=== PATIENT | male | born 1965 | race Caucasian/White ===

== ENCOUNTER → 2018-01-01 | Outpatient (CLI) | payer BC ==
--- NOTE | 2018-01-01 13:58 | BD ---
EXAMINATION TYPE: Axial Bone Density DATE OF EXAM: 01/01/2018 COMPARISON: DEXA bone scan September 21, 2015 CLINICAL HISTORY: Known osteoporosis. Height: 5 FT 10 IN Weight: 199 FRAX RISK QUESTIONS: Glucocorticoids (More than 3mos): YES (Ex: prednisone, prednisolone, methylprednisolone, dexamethasone, and hydrocortisone). RISK FACTORS HISTORY OF: Family History of Osteoporosis: YES Active: YES MEDICATIONS: Prednisone or other steroids: YES How Long: TAKES PREDNISONE FOR ONE MONTH AT A TIME FOR AT LEAST 3 TIMES A YEAR Additional Medications: ADVAIR DISC, SINGULAIR, OMEPRAZOLE, NASAL SPRAY ALLERGIES, KOZAR, VIT D3 CALC IUM , VALTREX NEEDED Additional History: ASTHMATIC SINCE A CHILD EXAM MEASUREMENTS: Bone mineral densitometry was performed using the [employer] System. Bone mineral density as measured about the Lumbar spine is: ----- L1-L4(G/cm2): 0.826 T Score Values are as follows: ----- L2: -3.1 ----- L3: -3.5 ----- L4: -3.5 ----- L1-L4: -3.0 Bone mineral density has: INCREASED 1.5 SINCE 2015 Bone mineral density about the R hip (g/cm2): 0.701 Bone mineral density about the L hip (g/cm2): 0.741 T Score values are as follows: -----R Neck: -2.4 -----L Neck: -2.1 -----R Total: -1.2 -----L Total: -1.0 Bone mineral density has: INCREASED 0.6 SINCE 2015 IMPRESSION: Osteoporosis (T Score less than -2.5) persists overall in the low back though bone density is not sig nificantly changed from prior. There remains increased fracture risk and therapy is usually indicated based on age. Re-Screen 1-2 years. NOTE: T-SCORE=SD OF THE YOUNG ADULT MEAN.
== END | disposition home or self-care (01) ==
LOC: RADBDWWP 08:41
PROVIDERS: ATTEND Internal Medicine
DX: M81.0 Age-related osteoporosis without current pathological fracture (principal)
CPT/HCPCS: 77080

== ENCOUNTER → 2018-03-07 | Outpatient (CLI) | payer BC ==
[2018-03-07 16:31] LABS: ALT 31 U/L (21-72); AST 25 U/L (17-59); Albumin 4.6 g/dL (3.5-5.0); Alkaline Phosphatase 53 U/L (38-126); Anion Gap 8 mmol/L; Blood Urea Nitrogen 12 mg/dL (9-20); Calcium 10.1 mg/dL (8.4-10.2); Carbon Dioxide 28 mmol/L (22-30); Chloride 104 mmol/L (98-107); Glucose 89 mg/dL (74-99); Potassium 4.4 mmol/L (3.5-5.1); Sodium 140 mmol/L (137-145); Total Bilirubin 0.4 mg/dL (0.2-1.3); Total Protein 7.8 g/dL (6.3-8.2)
--- NOTE | 2018-03-07 18:57 | US ---
EXAMINATION TYPE: US thyroid st tissue head/neck DATE OF EXAM: 03/07/2018 COMPARISON: NONE CLINICAL HISTORY: Z80.8 Family hx thyroid ca. family hx of thyroid cancer. No thyroid medications. GLAND SIZE: Right Lobe: 4.6 x 1.6 x 2.1 cm Overall Parenchyma: homogenous Left Lobe: 4.4 x 1.6 x 1.6 cm Overall Parenchyma: homogeneous Isthmus Thickness: 0.4 cm NODULES RIGHT: # of nodules measured on right: 1 1. 1.5 X 1.1 x 0.8 cm mixed nodule at the upper pole with well-defined margins. This nodule is wid er than tall and shows no intranodular vascularity. Prior size: No prior LEFT: # of nodules measured on left: 0 ISTHMUS: # of nodules measured in the isthmus: 0 Bilateral neck scanned, no evidence of lymphadenopathy. IMPRESSION: There is a oval-shaped complex cyst in the upper pole right thyroid lobe. This has high likelihood of being benign. Since this is solitary this could be followed conservatively with repeat ultrasound in 6-9 months.
[2018-03-08 02:15] LABS: Parathyroid Hormone Intact 26.2 pg/mL (14.0-72.0)
[2018-03-08 02:26] LABS: Vitamin D 25 Hydroxy 36.5 ng/mL (30.0-100.0)
== END ==
LOC: RADUSMAIN 15:47
PROVIDERS: ATTEND Internal Medicine Endocrinology, Diabetes & Metabolism
DX: E04.1 Nontoxic single thyroid nodule (principal); M81.0 Age-related osteoporosis without current pathological fracture; Z80.8 Family history of malignant neoplasm of other organs or systems
CPT/HCPCS: 36415; 76536; 80053; 82306; 82523; 83970; 84443

== ENCOUNTER → 2019-06-07 | Outpatient (CLI) | payer BC ==
--- NOTE | 2019-06-07 12:54 | US ---
EXAMINATION TYPE: US thyroid st tissue head/neck DATE OF EXAM: 06/07/2019 COMPARISON: US 03/07/18 CLINICAL HISTORY: E04.1 Thyroid nodule. GLAND SIZE: Right Lobe: 5.1 x 2.2 x 1.5 cm Overall Parenchyma: homogenous Left Lobe: 4.9 x 1.5 x 1.4 cm Overall Parenchyma: homogeneous Isthmus Thickness: 0.4 cm NODULES RIGHT: # of nodules measured on right: 1 1. 1.3 X 1.0 x 0.7 cm hypoechoic mixed nodule at the upper pole with well-defined margins; . This nodule is wider than tall and shows intranodular vascularity. Prior size: 1.5 x 1.1 x 0.8 cm LEFT: # of nodules measured on left: 0 ISTHMUS: # of nodules measured in the isthmus: 0 Bilateral neck scanned, no evidence of lymphadenopathy. Overall stable findings there is 1.3 cm hypoechoic oval nodule upper to midpole level right thyroid r edemonstrated. IMPRESSION: As above. Stable normal-sized thyroid without new greater than 1 cm nodule.
== END | disposition home or self-care (01) ==
LOC: RADUSWWP 12:21
PROVIDERS: ATTEND Internal Medicine Endocrinology, Diabetes & Metabolism
DX: E04.1 Nontoxic single thyroid nodule (principal)
CPT/HCPCS: 76536

== ENCOUNTER → 2020-04-16 | Outpatient (CLI) | payer BC ==
--- NOTE | 2020-04-16 16:53 | BD ---
EXAMINATION TYPE: Axial Bone Density DATE OF EXAM: 04/16/2020 COMPARISON: 01/01/2018 CLINICAL HISTORY: 54-year-old male M81.0, age-related osteoporosis. Height: 69.5 IN Weight: 198 LBS RISK FACTORS HISTORY OF: History of Wrist Fracture: LT WRIST AGE 16 Family History of Osteoporosis: YES MOTHER AND GRANDMOTHER Active: YES MEDICATIONS: Osteoporosis Medications: YES Which medication: TYMLOS INJECTIONS FOR ALMOST 2 YEARS Additional Medications: CALCIUM, VIT D, TYMLO S INJECTIONS,WIXELA INHALER, FISH OIL, NASAL SPRAY, ZYRTEC, LOSARTAN, SINGULAIR, PRILOSEC, RED YEAST RICE, IRON, EXAM MEASUREMENTS: Bone mineral densitometry was performed using the [employer] System. Bone mineral density as measured about the Lumbar spine is: ----- L1-L4(G/cm2): 1.051 T Score Values are as follows: ----- L2: -0.7 ----- L3: -1.7 ----- L4: -1.7 ----- L1-L4: -1.1 Bone mineral density has: Increased 29.8% since study of: 01/01/2018 Bone mineral density about the R hip (g/cm2): 0.751 Bone mineral density about the L hip (g/cm2): 0.797 T Score values are as follows: -----R Neck: -2.1 -----L Neck: -1.7 -----R Total: -0.8 -----L Total: -0.7 Bone mineral density has: Increased 5.4% since study of: 01/01/2018 IMPRESSION: Osteopenia (T Score between -2.5 and -1). There is slightly increased risk of fracture and the patient may be considered for treatment. Re-Screen 2-5 years. NOTE: T-SCORE=SD OF THE YOUNG ADULT MEAN.
== END | disposition home or self-care (01) ==
LOC: RADBDWWP 13:16
PROVIDERS: ATTEND Internal Medicine Endocrinology, Diabetes & Metabolism
DX: M85.80 Other specified disorders of bone density and structure, unspecified site (principal); M81.0 Age-related osteoporosis without current pathological fracture
CPT/HCPCS: 77080

== ENCOUNTER → 2020-07-16 | Outpatient (CLI) | payer BC ==
[2020-07-17 10:02] LABS: African American GFR (CKD) 115.7 (60.0-200.0); Albumin 4.7 g/dL (3.80-4.90); Albumin/Globulin Ratio 2.04 (1.60-3.17); Anion Gap 11.8 mmol/L (4.00-12.00); Calcium 9.6 mg/dL (8.7-10.3); Carbon Dioxide 23.2 mmol/L (21.6-31.8); Globulin 2.3 g/dL (1.6-3.3); Non-African American GFR(CKD) 99.9 (60.0-200.0); Potassium 4.7 mmol/L (3.5-5.5); Total Bilirubin 0.7 mg/dL (0.2-1.2)
== END | disposition home or self-care (01) ==
LOC: LABWHC1 13:22
PROVIDERS: ATTEND Internal Medicine Endocrinology, Diabetes & Metabolism
DX: M81.0 Age-related osteoporosis without current pathological fracture (principal)
CPT/HCPCS: 36415; 80053; 82306

== ENCOUNTER → 2021-02-03 | Outpatient (CLI) | payer BC ==
[2021-02-04 03:27] LABS: African American GFR (CKD) 109.5 (60.0-200.0); Albumin 4.8 g/dL (3.80-4.90); Albumin/Globulin Ratio 2.09 (1.60-3.17); Anion Gap 15.6 mmol/L (4.00-12.00); BUN/Creat Ratio 11.11 Ratio (12.00-20.00); Calcium 9.6 mg/dL (8.7-10.3); Carbon Dioxide 19.4 mmol/L (21.6-31.8); Globulin 2.3 g/dL (1.6-3.3); Non-African American GFR(CKD) 94.5 (60.0-200.0); Potassium 4.4 mmol/L (3.5-5.5); Total Bilirubin 0.5 mg/dL (0.3-1.2); Total Protein 7.1 g/dL (6.2-8.2)
== END | disposition home or self-care (01) ==
LOC: LABWHC1 13:50
PROVIDERS: ATTEND Internal Medicine Endocrinology, Diabetes & Metabolism
DX: M18.0 Bilateral primary osteoarthritis of first carpometacarpal joints (principal)
CPT/HCPCS: 36415; 80053; 82306; 82523; 83970; 84443

== ENCOUNTER → 2021-02-03 | Outpatient (CLI) | payer BC ==
--- NOTE | 2021-02-04 17:47 | US ---
EXAMINATION TYPE: US thyroid st tissue head/neck DATE OF EXAM: 02/03/2021 COMPARISON: 06/07/2019 CLINICAL HISTORY: 55-year-old male E04.1 SINGLE THYROID NODULE. Nontoxic single thyroid nodule. Hx bi opsy. GLAND SIZE: Right Lobe: 5.4 x 1.7 x 1.8 cm Overall Parenchyma: homogenous Left Lobe: 4.8 x 1.5 x 2.2 cm Overall Parenchyma: homogeneous Isthmus Thickness: 0.28 cm NODULES RIGHT: # of nodules measured on right: 1 1. 1.0 X 1.1 x 0.8 cm, mid-lower, solid or almost completely solid, hypoechoic TR 4 nodule, which i s wider than tall, with smooth margins, with echogenic foci. Prior size: 1.3 x 1.0 x 0.7 cm LEFT: # of nodules measured on left: 0 ISTHMUS: # of nodules measured in the isthmus: 0 Bilateral neck scanned, no evidence of lymphadenopathy. IMPRESSION: Borderline thyromegaly with relatively unchanged solid 1.1 cm TR4 nodule in the right lobe (versus 1. 3 cm, previously).
== END | disposition home or self-care (01) ==
LOC: RADUSWWP 13:26
PROVIDERS: ATTEND Internal Medicine Endocrinology, Diabetes & Metabolism
DX: E04.1 Nontoxic single thyroid nodule (principal)
CPT/HCPCS: 76536

== ENCOUNTER → 2021-07-12 | Outpatient (CLI) | payer BC ==
[2021-07-12 16:17] LABS: Total Eosinophil Count 170 #EOS/uL (150-300)
[2021-07-12 23:27] LABS: Basophils # (A) 0.01 X 10*3/uL (0.00-0.10); Basophils % (A) 0.1 %; Eosinophils # (A) 0.16 X 10*3/uL (0.04-0.35); Eosinophils % (A) 2.1 %; Immature Grans, Automated 0.3 %; Lymphocytes # (A) 2.35 X 10*3/uL (0.90-5.00); Lymphocytes % (A) 30.6 %; MCH 30.2 pg (27.0-32.0); MCHC 33.3 g/dL (32.0-37.0); MCV 90.5 fL (80.0-97.0); Mean Platelet Volume 9.4 fL (9.5-12.2); Monocytes # (A) 0.47 X 10*3/uL (0.20-1.00); Monocytes % (A) 6.1 %; NRBC Per 100 WBC 0 /100 WBCS (0.0-0.0); Neutrophils # (A) 4.67 X 10*3/uL (1.80-7.70); Neutrophils % (A) 60.8 %; Platelet Count 344 X 10*3/uL (140-440); RBC 4.31 X 10*6/uL (4.40-5.60); RDW 12.6 % (11.5-14.5); WBC 7.68 X 10*3/uL (4.50-10.00)
== END | disposition home or self-care (01) ==
LOC: LABWHC1 14:04
PROVIDERS: ATTEND Internal Medicine
DX: J45.909 Unspecified asthma, uncomplicated (principal)
CPT/HCPCS: 36415; 85008; 85025

== ENCOUNTER → 2022-10-25 | Outpatient (CLI) | payer BC ==
--- NOTE | 2022-10-25 15:36 | US ---
EXAMINATION TYPE: US thyroid st tissue head/neck DATE OF EXAM: 10/25/2022 COMPARISON: US dated 02/03/2021 CLINICAL INDICATION: Male, 57 years old with history of E04.1 SINGLE THYROID NODULE; GLAND SIZE: Right Lobe: 6.1 x 2.1 x 1.7 cm Overall Parenchyma: homogenous Left Lobe: 4.9 x 1.5 x 1.5 cm Overall Parenchyma: homogeneous Isthmus Thickness: 0.2 cm NODULES RIGHT: # of nodules measured on right: 1 1. 1.0 X 0.7 x 1.1 cm, upper mid, solid or almost completely solid, hypoechoic nodule, which is wid er than tall, with smooth margins, without echogenic foci. TR 4. Prior size: 1.0 x 0.8 x 1.1 cm LEFT: # of nodules measured on left: 0 ISTHMUS: # of nodules measured in the isthmus: 0 Bilateral neck scanned, no evidence of lymphadenopathy. Stable nodule. IMPRESSION: Stable right thyroid TR 4 nodule. No new thyroid nodules.
== END | disposition home or self-care (01) ==
LOC: RADUSWWP 12:34
PROVIDERS: ATTEND Internal Medicine Endocrinology, Diabetes & Metabolism
DX: E04.1 Nontoxic single thyroid nodule (principal)
CPT/HCPCS: 76536

== ENCOUNTER → 2022-10-25 | Outpatient (CLI) | payer BC ==
[2022-10-25 20:51] LABS: ALT 27 U/L (10-49); AST 24 U/L (14-35); Albumin 4.6 d/dL (3.8-4.9); Albumin/Globulin Ratio 1.84 Ratio (1.60-3.17); Alkaline Phosphatase 54 U/L (41-126); BUN/Creat Ratio 15.89 Ratio (12.00-20.00); Blood Urea Nitrogen 14.3 mg/dL (9.0-27.0); Carbon Dioxide 21.6 mmol/L (21.6-31.8); Chloride 102 mmol/L (96-109); Globulin 2.5 d/dL (1.6-3.3); Glucose 86 mg/dL (70-110); Potassium 3.9 mmol/L (3.5-5.5); Sodium 137 mmol/L (135-145); Total Bilirubin 0.6 mg/dL (0.3-1.2); Total Protein 7.1 d/dL (6.2-8.2)
== END | disposition home or self-care (01) ==
LOC: LABWHC1 12:38
PROVIDERS: ATTEND Internal Medicine Endocrinology, Diabetes & Metabolism
DX: M81.0 Age-related osteoporosis without current pathological fracture (principal)
CPT/HCPCS: 36415; 80053; 82306; 82523; 83970; 84153; 84443

== ENCOUNTER → 2023-10-24 | Outpatient (CLI) | payer BC ==
--- NOTE | 2023-10-24 11:23 | US ---
EXAMINATION TYPE: US thyroid st tissue head/neck DATE OF EXAM: 10/24/2023 COMPARISON: Multiple thyroid ultrasounds with the most recent US 10/25/2022 CLINICAL INDICATION: Male, 58 years old with history of E04.1 NONTOXIC SINGLE THYROID NODULE; Nodule. GLAND SIZE: Right Lobe: 6.2 x 1.8 x 2.1 cm Overall Parenchyma: homogeneous Left Lobe: 5.3 x 1.4 x 1.7 cm Overall Parenchyma: homogeneous Isthmus Thickness: 0.4 cm NODULES RIGHT: # of nodules measured on right: 1 1. 1.1 X 1.2 x 0.8 cm, upper mid, solid or almost completely solid, hypoechoic nodule, which is wid er than tall, with smooth margins, with echogenic foci. TR 4. Prior size: 1.0 x 0.7 x 1.1 cm LEFT: # of nodules measured on left: 0 ISTHMUS: # of nodules measured in the isthmus: 0 Bilateral neck scanned, no evidence of lymphadenopathy. IMPRESSION: Thyromegaly with marginal increase in size of 1.2 cm right thyroid lobe TR 4 nodule. Follow-up ultras ound in one year is recommended. No new thyroid nodules.
== END | disposition home or self-care (01) ==
LOC: RADUSWWP 09:51
PROVIDERS: ATTEND Internal Medicine Endocrinology, Diabetes & Metabolism
DX: E04.1 Nontoxic single thyroid nodule (principal)
CPT/HCPCS: 76536

== ENCOUNTER → 2024-12-10 | Outpatient (CLI) | payer BC | END | disposition home or self-care (01) | LOC: LABWHC1 13:23 | PROVIDERS: ATTEND Internal Medicine | DX: J45.50 Severe persistent asthma, uncomplicated (principal) | CPT/HCPCS: 36415; 82785; 85008 ==